=== PATIENT | male | born 1970 | race Asian ===

== ENCOUNTER 2016-08-09 00:40 | Emergency (ER) | payer BC ==
[~2016-08-09] VITALS: Ht 165.1 cm; Wt 78.5 kg
[2016-08-09 00:52] VITALS: BP 133/94
== END 2016-08-09 02:29 | disposition home or self-care (01) ==
LOC: ED 00:40
DX: S60.011A Contusion of right thumb without damage to nail, initial encounter (principal); W22.8XXA Striking against or struck by other objects, initial encounter; Y93.89 Activity, other specified; Y99.8 Other external cause status; Y92.89 Other specified places as the place of occurrence of the external cause